=== PATIENT | male | born 1940 | race Caucasian/White ===

== ENCOUNTER 2020-12-22 06:05 | Day surgery (SDC) | payer MEDICARE, OTHER ==
[2020-12-07 16:38] LABS: BASOPHILS % (AUTO) 0.3 % (0-1); EOSINOPHILS # (AUTO) 0.1 X10'3 (0-0.9); EOSINOPHILS % (AUTO) 1.1 % (0-6); LYMPHOCYTES # (AUTO) 1.1 X10'3 (1.1-4.8); LYMPHOCYTES % (AUTO) 17.7 % (21-51); MEAN CORPUSCULAR HEMOGLOBIN 32.5 PG (27.0-31.0); MEAN CORPUSCULAR VOLUME 95.7 FL (78-98); MONOCYTES # (AUTO) 0.7 X10'3 (0-0.9); MONOCYTES % (AUTO) 11.1 % (2-12); NEUTROPHILS # (AUTO) 4.4 X10'3 (1.8-7.7); NEUTROPHILS % (AUTO) 69.8 % (42-75); PRE OP HEMATOCRIT 39.5 % (42.0-52.0); PRE OP HEMOGLOBIN 13.4 g/dL (14.0-17.9); PRE OP PLATELET COUNT 157 X10'3 (140-440); RED BLOOD COUNT 4.13 X10'6 (4.70-6.10); RED CELL DISTRIBUTION WIDTH 13.5 % (11.5-14.5)
[2020-12-07 17:04] LABS: ALBUMIN 3.6 G/DL (3.4-5.0); ALBUMIN/GLOBULIN RATIO 1.2 (1.1-1.5); ALKALINE PHOSPHATASE 55 IU/L (46-116); BLOOD UREA NITROGEN 18 MG/DL (7-18); BUN/CREATININE RATIO 23.4 (5.4-32.0); CALCIUM 8.4 MG/DL (8.5-10.1); CHLORIDE 97 MMOL/L (99-107); CREATININE 0.77 MG/DL (0.60-1.10); PRE OP ALT 23 U/L (30-65); PRE OP ANION GAP 8 (8-16); PRE OP AST 10 U/L (10-37); PRE OP BILIRUB, TOTAL 0.5 MG/DL (0.0-1.0); PRE OP GLUCOSE 81 MG/DL (70-104); PRE OP POTASSIUM 4.4 MMOL/L (3.4-5.1); PRE OP SODIUM 131 MMOL/L (135-145); TOTAL CARBON DIOXIDE 26.3 MMOL/L (24-32); TOTAL PROTEIN 6.7 G/DL (6.4-8.2); eGFR > 90 ML/MIN
[~2020-12-22] VITALS: Ht 162.6 cm; Wt 86.1 kg
[~2020-12-22 06:05] MED LIST: ALFU10TA10 PO; ASPI-12 PO; BENA10TA75 PO; BENA20TA10 PO; CHOL400T8 PO; DILT-36 PO; DIVA500T9 PO; FLEC50TA PO; MAGN400C PO; ROSU10TA28 PO; cefazolin/dext.iso 2gm/100ml IV ONE; famotidine 20mg tablet PO ONE; ringers solution, lacted 1,000 ML IV SCH
[2020-12-22 06:20] VITALS: BP 152/86
[2020-12-22] MEDS ORDERED: BUPIVAcaine/PF 2.5mg/ml (0.25%) 10ml vial ONE (06:42)
[2020-12-22] MEDS ORDERED: morphine 4 MG/ML inj SYRINge IV PRN (08:15)
[2020-12-22] MEDS ORDERED: acetaminophen 1,000mg/100ml IV 100 ML IV PRN (08:15)
[2020-12-22] MEDS ORDERED: ringers solution, lacted 1,000 ML IV SCH (08:15)
[2020-12-22] MEDS ORDERED: hydrALAZINE 20mg/ml inj. IV PRN (08:15)
[2020-12-22] MEDS ORDERED: ondansetron/PF 4mg/2ml inj IV PRN (08:15)
[2020-12-22] MEDS ORDERED: meperidine/PF 25mg/ml syringe IV PRN ×3 (08:15)
[2020-12-22] MEDS ORDERED: labetalol 20mg/4ml (5mg/ml) syringe IV PRN (08:15)
[2020-12-22] MEDS ORDERED: morphine 2 MG/ML inj. syringe IV PRN (08:15)
[2020-12-22] MEDS ORDERED: proCHLORperazine 10 MG/2 ml inj IV PRN (08:15)
[2020-12-22] MEDS ORDERED: fentaNYL/PF 50MCG/1 ML 2ML syringe ONE (08:59)
[2020-12-22] MEDS ORDERED: midazolam 1 mg/ML 2ml injection ONE (09:00)
[2020-12-22] MEDS ORDERED: propofol inj 20 ML IV ONE (09:17)
[2020-12-22] MEDS ORDERED: LIDOcaine 0.5% (5mg/ml) 50ml vial ONE (09:17)
[2020-12-22 09:25] VITALS: BP 151/69
--- NOTE | 2020-12-22 09:26 | NUR ---
PAReceived from OR via ANTOINETTE, accompanied by Anesthesiologist NAIMA and report given by Anesthesiolgist. 20G PIV IN LEFT UE RUNNING LR AT 1`00. DENIES PAIN AT THIS TIME TO RIGHT WRIST THAT IS WRAPPED IN BAIS WRAP WITH NO DRAINAGE PRESENT. + CAP REFILL TO FINGERS. 3L NC WITH 97% SATURATIONS. Addendum: 12/22/20 at 1040 by Gera Carter RN, RN Amended: Links added.
[2020-12-22 09:30] VITALS: BP_SYST 150; BP_SYST 151; BP_DIAS 69; BP_DIAS 75
[2020-12-22 09:40] VITALS: BP 150/72
[2020-12-22 09:50] VITALS: BP 146/73
--- NOTE | 2020-12-22 09:55 | NUR ---
ALL DISCHARGE CRITERIA HAS BEEN MET. VSS, PAIN AT A TOLERABLE LEVEL, VOIDING AND ABLE TO SAFELY AMBULATE AND TRANSFER SELF. IV TAKEN OUT WITHOUT ANY COMPLICATIONS. ALL DISCHARGE INSTRUCTIONS COVERED WITH PATIENT AND ALL QUESTIONS ANSWERED. PATIENT TAKEN OUT VIA WHEELCHAIR TO PERSONAL VEHICLE WHERE FAMILY/FRIEND DROVE PATIENT HOME. Addendum: 12/22/20 at 1010 by Gera Carter RN, RN Amended: Links added.
== END 2020-12-22 09:55 | disposition home or self-care (01) ==
LOC: PAS 06:05
PROVIDERS: ATTEND Orthopaedic Surgery Hand Surgery
DX: G56.01 Carpal tunnel syndrome, right upper limb (principal); G47.30 Sleep apnea, unspecified; Z79.899 Other long term (current) drug therapy; Z87.891 Personal history of nicotine dependence; I10 Essential (primary) hypertension; I48.91 Unspecified atrial fibrillation; Z88.8 Allergy status to other drugs, medicaments and biological substances; Z98.890 Other specified postprocedural states; Z85.828 Personal history of other malignant neoplasm of skin
CPT/HCPCS: 36415; 64721; 80053; 82948; 85025; J2001; J2250; J2704; J3010; J3490; Z7506; Z7512; A4215; A4615; J7120

== ENCOUNTER 2021-01-19 05:40 | Day surgery (SDC) | payer MEDICARE, OTHER ==
[2021-01-12 11:10] LABS: BASOPHILS % (AUTO) 0.1 % (0-1); EOSINOPHILS # (AUTO) 0.1 X10'3 (0-0.9); EOSINOPHILS % (AUTO) 1.1 % (0-6); HEMATOCRIT 39.7 % (42.0-52.0); HEMOGLOBIN 13.4 g/dl (14.0-17.9); LYMPHOCYTES # (AUTO) 1.1 X10'3 (1.1-4.8); LYMPHOCYTES % (AUTO) 17.6 % (21-51); MEAN CORPUSCULAR HEMOGLOBIN 32.2 PG (27.0-31.0); MEAN CORPUSCULAR HGB CONC 33.6 g/dL (33.0-36.5); MEAN CORPUSCULAR VOLUME 95.6 FL (78-98); MEAN PLATELET VOLUME 9.7 FL (7.4-10.4); MONOCYTES % (AUTO) 15.3 % (2-12); NEUTROPHILS # (AUTO) 4.2 X10'3 (1.8-7.7); NEUTROPHILS % (AUTO) 65.9 % (42-75); PLATELET COUNT 152 X10'3 (140-440); RED BLOOD COUNT 4.15 X10'6 (4.70-6.10); RED CELL DISTRIBUTION WIDTH 13.7 % (11.5-14.5); WHITE BLOOD COUNT 6.3 X10'3 (4.5-11.0)
[2021-01-12 11:25] LABS: ALANINE AMINOTRANSFERASE 18 U/L (12-78); ALBUMIN 3.3 G/DL (3.4-5.0); ALBUMIN/GLOBULIN RATIO 1.1 (1.1-1.5); ALKALINE PHOSPHATASE 65 IU/L (46-116); ANION GAP 6 (8-16); ASPARTATE AMINO TRANSFERASE 8 U/L (10-37); BILIRUBIN,TOTAL 0.4 MG/DL (0.1-1.0); CALCIUM 8.2 MG/DL (8.5-10.1); CHLORIDE 99 MMOL/L (99-107); CREATININE 0.98 MG/DL (0.60-1.10); GLUCOSE 95 MG/DL (70-104); POTASSIUM 4.4 MMOL/L (3.5-5.1); SODIUM 132 MMOL/L (135-145); TOTAL CARBON DIOXIDE 27.3 MMOL/L (24-32); TOTAL PROTEIN 6.2 G/DL (6.4-8.2); eGFR 73 ML/MIN
[2021-01-12 11:28] LABS: BLOOD UREA NITROGEN 18 MG/DL (7-18); BUN/CREATININE RATIO 18.4 (5.4-32.0)
[2021-01-12 11:30] LABS: LARGE PLATELETS FEW; PLATELET ESTIMATE NORMAL; TOTAL CELLS COUNTED 100
[~2021-01-19] VITALS: Ht 162.6 cm; Wt 87.0 kg
[2021-01-19] MEDS ORDERED: BUPIVAcaine/PF 2.5mg/ml (0.25%) 10ml vial ONE (06:41)
[2021-01-19 06:43] VITALS: BP 157/79
[2021-01-19 06:46] VITALS: BP 157/79
[2021-01-19] MEDS ORDERED: meperidine/PF 25mg/ml syringe IV PRN ×3 (07:10)
[2021-01-19] MEDS ORDERED: labetalol 20mg/4ml (5mg/ml) syringe IV PRN (07:10)
[2021-01-19] MEDS ORDERED: morphine 4 MG/ML inj SYRINge IV PRN (07:10)
[2021-01-19] MEDS ORDERED: morphine 2 MG/ML inj. syringe IV PRN (07:10)
[2021-01-19] MEDS ORDERED: ondansetron/PF 4mg/2ml inj IV PRN (07:10)
[2021-01-19] MEDS ORDERED: proCHLORperazine 10 MG/2 ml inj IV PRN (07:10)
[2021-01-19] MEDS ORDERED: acetaminophen 1,000mg/100ml IV 100 ML IV PRN (07:10)
[2021-01-19] MEDS ORDERED: hydrALAZINE 20mg/ml inj. IV PRN (07:10)
[2021-01-19] MEDS ORDERED: ringers solution, lacted 1,000 ML IV SCH (07:10)
[2021-01-19] MEDS ORDERED: fentaNYL/PF 50MCG/1 ML 2ML syringe ONE (07:12)
[2021-01-19] MEDS ORDERED: midazolam 1 mg/ML 2ml injection ONE (07:12)
[2021-01-19] MEDS ORDERED: LIDOcaine 0.5% (5mg/ml) 50ml vial ONE (07:13)
[2021-01-19] MEDS ORDERED: propofol inj 20 ML IV ONE (07:35)
[2021-01-19 07:46] VITALS: BP 183/75
[2021-01-19 07:56] VITALS: BP 177/72
[2021-01-19 08:06] VITALS: BP 174/69
[2021-01-19 08:16] VITALS: BP 170/67
--- NOTE | 2021-01-19 08:26 | NUR ---
ALL DC CRITERIA HAS BEEN MET. IV OUT WITHOUT COMPLICATION, NEW OP SITE DONNED TO LEFT UE EXISTING SKIN TEAR. OUT VIA WHEEELCHAIR TO PERSONAL VEHICLE WHERE TOOK EDYTA HOME. REINFORCED USE OF CPAP/BIPAP FOR 24 HOURS POST OP. VOIDED AND AMBULATED DURING STAY HERE. Addendum: 01/19/21 at 0843 by Gera Carter RN, RN Amended: Links added.
== END 2021-01-19 08:26 | disposition home or self-care (01) ==
LOC: PAS 05:40
PROVIDERS: ATTEND Orthopaedic Surgery Hand Surgery
DX: G56.02 Carpal tunnel syndrome, left upper limb (principal); I10 Essential (primary) hypertension; E78.00 Pure hypercholesterolemia, unspecified; G47.33 Obstructive sleep apnea (adult) (pediatric); I48.91 Unspecified atrial fibrillation; Z20.822 Contact with and (suspected) exposure to COVID-19; Z79.899 Other long term (current) drug therapy; Z98.41 Cataract extraction status, right eye; Z85.828 Personal history of other malignant neoplasm of skin; Z87.891 Personal history of nicotine dependence; Z88.8 Allergy status to other drugs, medicaments and biological substances
CPT/HCPCS: 36415; 64721; 80053; 82948; 85025; J2001; J2250; J2704; J3010; J3490; U0003; U0005; Z7506; Z7512; 85007; A4215; J7120

== ENCOUNTER 2024-08-11 09:33 | Day surgery (SDC) | payer MEDICARE, OTHER ==
[2024-08-10 11:36] LABS: BASOPHILS % (AUTO) 0.3 % (0-1); EOSINOPHILS # (AUTO) 0.1 X10'3 (0-0.9); EOSINOPHILS % (AUTO) 1.2 % (0-6); HEMATOCRIT 37.8 % (42.0-52.0); HEMOGLOBIN 12.9 g/dl (14.0-17.9); LYMPHOCYTES # (AUTO) 1.6 X10'3 (1.1-4.8); LYMPHOCYTES % (AUTO) 18.7 % (21-51); MEAN CORPUSCULAR HEMOGLOBIN 33.2 PG (27.0-31.0); MEAN CORPUSCULAR HGB CONC 34.1 g/dL (33.0-36.5); MEAN CORPUSCULAR VOLUME 97.3 FL (78-98); MEAN PLATELET VOLUME 9.4 FL (7.4-10.4); MONOCYTES # (AUTO) 1.1 X10'3 (0-0.9); MONOCYTES % (AUTO) 12.4 % (2-12); NEUTROPHILS # (AUTO) 5.7 X10'3 (1.8-7.7); NEUTROPHILS % (AUTO) 67.4 % (42-75); PLATELET COUNT 183 X10'3 (140-440); RED BLOOD COUNT 3.88 X10'6 (4.70-6.10); RED CELL DISTRIBUTION WIDTH 13.8 % (11.5-14.5); WHITE BLOOD COUNT 8.5 X10'3 (4.5-11.0)
[2024-08-10 11:45] LABS: APTT 27 SECONDS (22-32); INR 1.1 INR
[2024-08-10 11:49] LABS: ANION GAP 8 (8-16); BLOOD UREA NITROGEN 29 MG/DL (7-18); CALCIUM 8.2 MG/DL (8.5-10.1); CHLORIDE 100 MMOL/L (99-107); CREATININE 1.16 MG/DL (0.60-1.10); GLUCOSE 85 MG/DL (70-104); POTASSIUM 4.4 MMOL/L (3.5-5.1); SODIUM 133 MMOL/L (135-145); TOTAL CARBON DIOXIDE 25.4 MMOL/L (24-32); eGFR 60 ML/MIN
[2024-08-11] VITALS (10 sets, daily range): BP systolic 122–149; BP diastolic 45–82; PULSE 50–68; RESP 12–20; TEMP 98.1; O2SAT 96–98
[~2024-08-11] VITALS: Ht 172.7 cm; Wt 82.5 kg
[~2024-08-11 09:33] MED LIST changes: -ALFU10TA10 PO; +ALFU10TA47 PO; -BENA20TA10 PO; +BENA20TA83 PO; -ROSU10TA28 PO; +ROSU10TA72 PO; -cefazolin/dext.iso 2gm/100ml IV ONE; -famotidine 20mg tablet PO ONE; -ringers solution, lacted 1,000 ML IV SCH
[2024-08-11] MEDS ORDERED: ceFAZolin 2gm in dextrose, iso 50 ML IV ONE (10:00)
[2024-08-11] MEDS ORDERED: normal saline 1000ml 1,000 ML IV PRN (10:00)
[2024-08-11] MEDS ORDERED: AZEL137S4 (10:44)
[2024-08-11] MEDS ORDERED: DILT360C52 (10:44)
[2024-08-11] MEDS ORDERED: SILD100T PO (10:44)
[2024-08-11] MEDS ORDERED: fentaNYL/PF 50MCG/1 ML 2ML syringe ONE (13:05)
[2024-08-11] MEDS ORDERED: midazolam 1 mg/ML 2ml injection ONE (13:05)
[2024-08-11] MEDS ORDERED: LIDOcaine 1% W/epiNEPHrine 1:100,000 20ml vial ONE (13:05)
[2024-08-11] MEDS ORDERED: ceFAZolin 1000mg inj ONE (13:05)
[2024-08-11] MEDS ORDERED: iohexol 350 MG/ML 50ML vial IV ONE (13:06)
[2024-08-11] MEDS ORDERED: HYDROcodone/acetaminophen 10/325mg tab PO PRN (15:25)
[2024-08-11] MEDS ORDERED: normal saline 1,000 ML IV SCH (15:25)
[2024-08-11] MEDS ORDERED: HYDROcodone/acetaminophen 5mg/325mg tablet PO PRN (15:25)
[2024-08-11] MEDS: vancomycin/NS 1 GM ADD-VANTAGE 250 ML IV ONE (17:02)
[2024-08-11] MEDS ORDERED: CEPH250T PO (18:29)
== END 2024-08-11 19:20 | disposition home or self-care (01) ==
LOC: SSTAY O 09:33
PROVIDERS: ATTEND Internal Medicine Cardiovascular Disease
DX: I49.5 Sick sinus syndrome (principal); E78.5 Hyperlipidemia, unspecified; I10 Essential (primary) hypertension; G47.30 Sleep apnea, unspecified; I48.0 Paroxysmal atrial fibrillation; G40.909 Epilepsy, unspecified, not intractable, without status epilepticus; Z98.890 Other specified postprocedural states; Z85.038 Personal history of other malignant neoplasm of large intestine; Z79.899 Other long term (current) drug therapy
CPT/HCPCS: 33208; 36415; 71046; 80048; 85025; 85610; 85730; 93005; 99152; 99153; A4565; A6402; C1785; C1898; J0690; J2250; J3010; J3370; J3490; J7030; Z7610; A6449; Q9967

== ENCOUNTER 2024-08-14 18:33 | Emergency (ER) | payer MEDICARE, OTHER ==
[~2024-08-14] VITALS: Ht 172.7 cm; Wt 83.6 kg
[~2024-08-14 18:33] MED LIST changes: +AZEL137S4; -BENA10TA75 PO; +CEPH250T PO; -CHOL400T8 PO; -DILT-36 PO; +DILT360C52; -MAGN400C PO; +SILD100T PO
[2024-08-14] MEDS: LIDOcaine 1% W/epiNEPHrine 1:100,000 20ml vial SQ ONE (19:04)
[2024-08-14 19:56] LABS: ALBUMIN 2.9 G/DL (3.4-5.0); ANION GAP 9 (8-16); BLOOD UREA NITROGEN 26 MG/DL (7-18); CALCIUM 8.3 MG/DL (8.5-10.1); CHLORIDE 96 MMOL/L (99-107); GLUCOSE 162 MG/DL (70-104); POTASSIUM 4.4 MMOL/L (3.5-5.1); SODIUM 133 MMOL/L (135-145); TOTAL CARBON DIOXIDE 28.1 MMOL/L (24-32); eCRCL 51 ML/MIN; eGFR 71 ML/MIN
[2024-08-14 19:58] LABS: PROTHROMBIN TIME 10.7 SECONDS (9.0-12.0)
[2024-08-14 19:59] LABS: BASOPHILS % (AUTO) 0.2 % (0-1); EOSINOPHILS # (AUTO) 0.1 X10'3 (0-0.9); HEMATOCRIT 34.8 % (42.0-52.0); LYMPHOCYTES # (AUTO) 1.6 X10'3 (1.1-4.8); LYMPHOCYTES % (AUTO) 20.1 % (21-51); MEAN CORPUSCULAR HEMOGLOBIN 33.4 PG (27.0-31.0); MEAN CORPUSCULAR HGB CONC 34.6 g/dL (33.0-36.5); MEAN CORPUSCULAR VOLUME 96.6 FL (78-98); MEAN PLATELET VOLUME 10.2 FL (7.4-10.4); MONOCYTES # (AUTO) 0.8 X10'3 (0-0.9); MONOCYTES % (AUTO) 9.7 % (2-12); NEUTROPHILS # (AUTO) 5.5 X10'3 (1.8-7.7); PLATELET COUNT 156 X10'3 (140-440); RED CELL DISTRIBUTION WIDTH 13.8 % (11.5-14.5); WHITE BLOOD COUNT 7.9 X10'3 (4.5-11.0)
[2024-08-14 20:20] VITALS: PULSE 60
[2024-08-14 20:51] VITALS: BP 139/74; RESP 16; TEMP 98.2; O2SAT 98
== END 2024-08-14 20:52 | disposition home or self-care (01) ==
LOC: ER 18:33
DX: L76.21 Postprocedural hemorrhage of skin and subcutaneous tissue following a dermatologic procedure (principal); I10 Essential (primary) hypertension; Z95.0 Presence of cardiac pacemaker; Z79.82 Long term (current) use of aspirin
CPT/HCPCS: 12001; 36415; 80048; 85025; 85610; 93005; 99284; A6402; J3490; Z7610; A6449